=== PATIENT | male | born 1980 | race Caucasian/White ===

== ENCOUNTER 2016-12-09 10:50 | Emergency (ER) | payer OTHER ==
[2016-12-09 10:57] VITALS: BP 120/82; PULSE 69; RESP 17; TEMP 97.7; O2SAT 96
--- NOTE | 2016-12-09 11:36 | EDPHY ---
H & P Time Seen by Provider: 12/09/16 11:26 HPI/ROS: CHIEF COMPLAINT: Back pain. HISTORY OF PRESENT ILLNESS: The patient is a 36-year-old male presenting with acute right back pain that started yesterday. The patient developed low back pain yesterday, without obvious cause and without trauma. He took ibuprofen last evening with some relief of pain. This morning when he tried to get out of bed, the pain was severe and increased with any movement. No associated symptoms. The patient has experienced this pain in the past. He denies acute numbness, weakness, loss of bowel or bladder control. He has ongoing numbness of his right toes. REVIEW OF SYSTEMS: A comprehensive 10 point review of systems is otherwise negative aside from elements mentioned in the history of present illness. Past Medical/Surgical History: Denies. Social History: Works as plant electrical engineer. Smoking Status: Current every day smoker Physical Exam: General Appearance: Alert, appears in severe pain with movement. Eyes: Pupils equal and round, no conjunctival pallor ENT, Mouth: Mucous membranes moist Neck: Normal inspection Gastrointestinal: Abdomen is soft and non-tender Back: Bilateral lumbar paraspinous tenderness Neurological: A&O, motor 5/5 including dorsiflexion of the ankle and 1st toes bilaterally, DTRs 1+ bilaterally Skin: Warm and dry, no rash Extremities: Nontender, no pedal edema Psychiatric: Mood and affect normal Constitutional: Initial Vital Signs Temperature (C) 36.5 C 12/09/16 10:55 Heart Rate 69 12/09/16 10:55 Respiratory Rate 17 12/09/16 10:55 Blood Pressure 120/82 H 12/09/16 10:55 O2 Sat (%) 96 12/09/16 10:55 O2 Delivery Mode Room Air Allergies/Adverse Reactions: No Known Allergies Allergy (Verified 12/09/16 10:53) Home Medications: Medication Instructions Recorded Cyclobenzaprine [Flexeril 10 MG 10 mg PO TID PRN #15 tab 12/09/16 (*)] Hydrocodone/APAP 5/325 [[place] 1 - 2 tab PO Q4H PRN #10 tab 12/09/16 5/325] Lidocaine [Lidoderm] 1 each TP DAILY #7 adh..patch 12/09/16 Medical Decision Making ED Course/Re-evaluation: This patient presents with musculoskeletal low back pain hand with a normal neurologic exam. Imaging is not indicated. Patient received 10mg Flexeril, 1 tab hydrocodone, and 600mg Ibuprofen. A lidocaine patch was applied to the lower back. Plan to discharge patient home with lidocaine patch and Flexeril. Patient instructed to take Ibuprofen 3 times daily while the pain persists. Differential Diagnosis: Differential diagnosis for back pain includes muscular pain, herniated disc, epidural abscess, discitis, spine fracture, intra-abdominal causes and urinary tract infection. - Data Points Medications Given: Discontinued Medications Hydrocodone Bitart/Acetaminophen ([place] 5/325) 1 tab PO EDNOW ONE Stop: 12/09/16 11:40 Last Admin: 12/09/16 12:01 Dose: 1 tab Cyclobenzaprine HCl (Flexeril) 10 mg PO EDNOW ONE Stop: 12/09/16 11:40 Last Admin: 12/09/16 11:57 Dose: 10 mg Ibuprofen (Motrin) 600 mg PO EDNOW ONE Stop: 12/09/16 11:38 Last Admin: 12/09/16 12:01 Dose: 600 mg Lidocaine (Lidoderm 5%) 1 ea TD EDNOW ONE Stop: 12/09/16 11:40 Last Admin: 12/09/16 12:01 Dose: 1 ea Miscellaneous Information (Patch Removal) 1 ea TD DAILY21 ASHER Stop: 06/07/17 20:59 Last Admin: 12/09/16 12:02 Dose: 1 ea Departure - Departure Disposition: Home, Routine, Self-Care Clinical Impression: Low back pain Qualifiers: Chronicity: acute Back pain laterality: bilateral Sciatica presence: without sciatica Qualified Code(s): M54.5 - Low back pain Condition: Good Instructions: Low Back Strain (ED) Additional Instructions: Take 600mg Ibuprofen every 6-8 hours as needed for pain. Use muscle relaxers as directed for severe pain. Referrals: Qamar Rodriguez MD [Medical Doctor] - 5-7 days, if not improved Stand Alone Forms: Work Excuse Prescriptions: Cyclobenzaprine [Flexeril 10 MG (*)] 10 mg PO TID PRN #15 tab PRN Reason: Spasms Hydrocodone/APAP 5/325 [[place] 5/325] 1 - 2 tab PO Q4H PRN #10 tab PRN Reason: Pain, Moderate Lidocaine [Lidoderm] 1 each TP DAILY #7 adh..patch Report Scribed for: Estrella Lopez Report Scribed by: Fernanda Fam Date of Report: 12/09/16 Time of Report: 11:29 Physician Review and Approval Statement: 12/09/16 11:29 Portions of this note were transcribed by a medical office specialist. I personally performed the history, physical exam, and medical decision-making; and confirmed the accuracy of the information in the transcribed note.
[2016-12-09] MEDS ORDERED: IBUPROFEN 600 MG TAB PO ONE (11:37)
[2016-12-09] MEDS ORDERED: CYCLOBENZAPRINE 10 MG TAB PO ONE (11:39)
[2016-12-09] MEDS ORDERED: LIDOCAINE 5% 1 EA PATCH TD ONE (11:39)
[2016-12-09] MEDS ORDERED: HYDROCODONE/APAP 5/325 TAB PO ONE (11:39)
[2016-12-09] MEDS ORDERED: PATCH REMOVAL 1 EA PATCH TD SCH (21:00)
== END 2016-12-09 12:02 | disposition home or self-care (01) ==
DX: M54.5 Low back pain (principal); F17.200 Nicotine dependence, unspecified, uncomplicated

== ENCOUNTER → 2018-09-26 | Outpatient (CLI) | payer OTHER | LOC: GIMAGING 17:18 | PROVIDERS: ATTEND Nurse Practitioner Family | DX: R06.02 Shortness of breath (principal); M54.9 Dorsalgia, unspecified; W00.0XXA Fall on same level due to ice and snow, initial encounter | CPT/HCPCS: 71046-PO; 72072-PO ==